=== PATIENT | female | born 1955 | race Caucasian/White ===

== ENCOUNTER 2019-12-18 13:19 | Outpatient (REF) | payer MEDICARE, SELFPAY ==
[2019-12-18 21:18] LABS: HCT 41.9 % (36.0-46.0); HGB 13.9 g/dL (12.0-15.5); Mean Corp. HGB Concentration 33.2 g/dL (32.0-36.0); Mean Corpuscular Hemoglobin 31.3 pg (27.0-33.0); Mean Corpuscular Volume 94.4 fL (80-95); Mean Platelet Volume 10.5 fL (8.0-11.0); Platelet Count 293 x1000/uL (130-400); RBC 4.44 m/cumm (4.00-5.20); RBC Distribution Width 13.3 % (11.7-14.6); White Blood Cell Count 7.79 k/cumm (4.4-10.8)
[2019-12-18 21:51] LABS: ALT 27 U/L (14-59); AST 15 U/L (15-37); Alkaline Phosphatase 101 U/L (46-116); Anion Gap 5.3 mmol/L (3-11); BUN 22 mg/dL (7-18); Bilirubin, Total 0.4 mg/dL (0.2-1.0); CO2 34.7 mmol/L (21.0-32.0); Calcium 9.4 mg/dL (8.5-10.1); Calculated LDL 100 mg/dL (<100); Chloride 102 mmol/L (98-107); Cholesterol 207 mg/dL (<200); Estimated GFR 55.64 (mL/min/1.73m2); Glucose 88 mg/dL (74-106); HDL Cholesterol 50 mg/dL (40-60); Magnesium 1.8 mg/dL (1.8-2.4); Potassium 4.4 mmol/L (3.5-5.1); Sodium 142 mmol/L (136-145); Total Protein 7.5 g/dL (6.4-8.2); Triglyceride 289 mg/dL (<150); Vitamin B12 519 pg/mL (193-986)
== END 2019-12-18 13:39 ==
LOC: NCHCN 13:19
PROVIDERS: Visit Provider Nurse Practitioner Family
DX: E78.5 Hyperlipidemia, unspecified (principal); E11.9 Type 2 diabetes mellitus without complications; Z51.81 Encounter for therapeutic drug level monitoring; I10 Essential (primary) hypertension
CPT/HCPCS: 80053; 80061; 85027; 82607; 83735

== ENCOUNTER 2020-03-26 08:18 | Outpatient (REF) | payer MEDICARE, SELFPAY ==
[2020-03-26 21:32] LABS: Hemoglobin A1C 5.7 % (3.8-5.6)
[2020-03-26 21:42] LABS: ALT 25 U/L (14-59); AST 14 U/L (15-37); Albumin 4.1 g/dL (3.4-5.0); Alkaline Phosphatase 90 U/L (46-116); Anion Gap 10.1 mmol/L (3-11); BUN 20 mg/dL (7-18); Bilirubin, Total 0.6 mg/dL (0.2-1.0); CO2 27.9 mmol/L (21.0-32.0); CREATININE 0.93 mg/dL (0.55-1.02); Calcium 9.3 mg/dL (8.5-10.1); Calculated LDL 101 mg/dL (<100); Chloride 104 mmol/L (98-107); Cholesterol 185 mg/dL (<200); Glucose 104 mg/dL (74-106); HDL Cholesterol 58 mg/dL (40-60); Potassium 4.2 mmol/L (3.5-5.1); Sodium 142 mmol/L (136-145); Total Protein 7.2 g/dL (6.4-8.2); Triglyceride 134 mg/dL (<150)
== END 2020-03-26 08:38 ==
LOC: NCHCN 08:18
PROVIDERS: Visit Provider Nurse Practitioner Family
DX: E11.9 Type 2 diabetes mellitus without complications (principal); E78.5 Hyperlipidemia, unspecified; I10 Essential (primary) hypertension
CPT/HCPCS: 80053; 80061; 83036

== ENCOUNTER 2020-04-02 12:29 | Outpatient (REF) | payer MEDICARE, MEDICAID, SELFPAY ==
[2020-04-02 22:56] LABS: COMMENT (LAB VIEW ONLY) 93.25 mg/dL; Microalb ug/mg Crea 36.8 ug/mg Cr
== END 2020-04-02 12:49 ==
LOC: NCHCN 12:29
PROVIDERS: PCP Nurse Practitioner Family; Visit Provider Nurse Practitioner Family
DX: E11.9 Type 2 diabetes mellitus without complications (principal)
CPT/HCPCS: 82043; 82570

== ENCOUNTER 2020-06-03 10:43 | Outpatient (REF) | payer MEDICARE, MEDICAID, SELFPAY ==
[2020-06-03 21:37] LABS: Anion Gap 8.2 mmol/L (3-11); BUN 17 mg/dL (7-18); CO2 30.8 mmol/L (21.0-32.0); CREATININE 0.84 mg/dL (0.55-1.02); Calcium 9.1 mg/dL (8.5-10.1); Chloride 103 mmol/L (98-107); Glucose 107 mg/dL (74-106); Potassium 4.1 mmol/L (3.5-5.1); Sodium 142 mmol/L (136-145); TSH (W/Ref FT4) 1.89 uIU/mL (0.36-3.74)
== END 2020-06-03 11:03 ==
LOC: NCHCN 10:43
PROVIDERS: PCP Nurse Practitioner Family; Visit Provider Nurse Practitioner Family
DX: L65.9 Nonscarring hair loss, unspecified (principal); R80.9 Proteinuria, unspecified
CPT/HCPCS: 80048; 84443

== ENCOUNTER 2020-06-17 14:20 | Outpatient (REF) | payer MEDICARE, MEDICAID, SELFPAY ==
[2020-06-17 21:01] LABS: Anion Gap 7.5 mmol/L (3-11); BUN 12 mg/dL (7-18); CO2 31.5 mmol/L (21.0-32.0); CREATININE 0.82 mg/dL (0.55-1.02); Calcium 9.2 mg/dL (8.5-10.1); Chloride 98 mmol/L (98-107); Glucose 98 mg/dL (74-106); Sodium 137 mmol/L (136-145)
== END 2020-06-17 14:40 ==
LOC: NCHCN 14:20
PROVIDERS: PCP Nurse Practitioner Family; Visit Provider Nurse Practitioner Family
DX: E11.9 Type 2 diabetes mellitus without complications (principal)
CPT/HCPCS: 80048

== ENCOUNTER 2021-01-14 14:58 | Outpatient (REF) | payer MEDICARE, MEDICAID, SELFPAY ==
[2021-01-14 13:42] LABS: ALT 22 U/L (14-59); AST 14 U/L (15-37); Albumin 3.3 g/dL (3.4-5.0); Alkaline Phosphatase 98 U/L (46-116); Anion Gap 10.7 mmol/L (3-11); BUN 19 mg/dL (7-18); Bilirubin, Total 0.7 mg/dL (0.2-1.0); CO2 24.3 mmol/L (21.0-32.0); Calcium 8.3 mg/dL (8.5-10.1); Calculated LDL 104 mg/dL (<100); Chloride 99 mmol/L (98-107); Cholesterol 183 mg/dL (<200); Glucose 164 mg/dL (74-106); HDL Cholesterol 63 mg/dL (40-60); Potassium 4.2 mmol/L (3.5-5.1); Sodium 134 mmol/L (136-145); Total Protein 6.7 g/dL (6.4-8.2); Triglyceride 84 mg/dL (<150)
[2021-01-15 10:02] LABS: HIV-1/2 Ag & Ab Screen Negative (Negative)
[2021-01-15 10:38] LABS: Hepatitis C Ab w Rflx HCV PCR Negative (Negative)
== END 2021-01-14 14:59 | disposition home or self-care (01) ==
LOC: NCHCN 14:58
PROVIDERS: PCP Nurse Practitioner Family; Visit Provider Nurse Practitioner Family
DX: E78.5 Hyperlipidemia, unspecified (principal); I10 Essential (primary) hypertension; E11.9 Type 2 diabetes mellitus without complications; Z11.4 Encounter for screening for human immunodeficiency virus [HIV]; Z11.59 Encounter for screening for other viral diseases; Z00.00 Encounter for general adult medical examination without abnormal findings
CPT/HCPCS: 80053; 80061; 86803; 87389

== ENCOUNTER 2021-07-15 22:35 | Outpatient (REF) | payer MEDICARE, MEDICAID, SELFPAY ==
[2021-07-15 22:11] LABS: BUN 14 mg/dL (7-18); CREATININE 0.9 mg/dL (0.55-1.02); Calcium 9.4 mg/dL (8.5-10.1); Chloride 105 mmol/L (98-107); Glucose 94 mg/dL (74-106); Potassium 4.4 mmol/L (3.5-5.1); Sodium 142 mmol/L (136-145)
== END 2021-07-15 22:36 | disposition home or self-care (01) ==
LOC: NCHCN 22:35
PROVIDERS: PCP Nurse Practitioner Family; Visit Provider Registered Nurse
DX: I10 Essential (primary) hypertension (principal)
CPT/HCPCS: 80048

== ENCOUNTER 2021-08-19 15:44 | Outpatient (REF) | payer MEDICARE, MEDICAID, SELFPAY | END 2021-08-19 15:45 | disposition home or self-care (01) | LOC: NCHCN 15:44 | PROVIDERS: PCP Nurse Practitioner Family; Visit Provider Nurse Practitioner Psychiatric/Mental Health | DX: F33.9 Major depressive disorder, recurrent, unspecified (principal) | CPT/HCPCS: 82306 ==

== ENCOUNTER 2021-09-09 12:00 | Outpatient (REF) | payer MEDICARE, MEDICAID, SELFPAY ==
[2021-09-09 23:06] LABS: TSH (W/Ref FT4) 4.41 uIU/mL (0.36-3.74)
[2021-09-09 23:23] LABS: FREE T4 0.96 ng/dL (0.76-1.46)
== END 2021-09-09 12:01 | disposition home or self-care (01) ==
LOC: LBN 12:00
PROVIDERS: PCP Nurse Practitioner Family; Visit Provider Registered Nurse
DX: R53.83 Other fatigue (principal)
CPT/HCPCS: 84439; 84443

== ENCOUNTER 2021-09-23 15:03 | Outpatient (REF) | payer MEDICARE, MEDICAID, SELFPAY ==
[2021-09-23 13:54] LABS: BUN 17 mg/dL (7-18); CREATININE 0.9 mg/dL (0.55-1.02)
== END 2021-09-23 15:04 | disposition home or self-care (01) ==
LOC: NCHCN 15:03
PROVIDERS: PCP Nurse Practitioner Family; Visit Provider Registered Nurse
DX: R91.1 Solitary pulmonary nodule (principal)
CPT/HCPCS: 84520; 82565

== ENCOUNTER 2021-10-14 15:27 | Outpatient (REF) | payer MEDICARE, MEDICAID, SELFPAY ==
--- OUTSIDE RECORDS SUMMARY | 2021-10-14 15:31 | XMS_ITS | CCD ---
:1955 Author Care Team Providers Name Role Phone FLORA SPRINGER MD Attending Physician Unavailable Vital Signs Vital Sign Value Unit Date/Time Recent/Initial? BMI (Body Mass Index) 35.95 kg/m^2 05/14/2021 14:25 In itial VS Weight Measured 178 lbs 05/14/2021 14:25 Initial VS Height 59 in 05/14/2021 14:25 Initial VS BSA (Body Surface 1.83 m^2 05/14/2021 14:25 Initia l VS Area) BP Systolic 109 mmHg 05/20/2021 11:39 Initial VS BP Diastolic 65 mmHg 05/20/2021 11:39 Initial VS Respiratory Rate 13 bpm 05/20/2021 11:39 Initial VS Heart Rate 64 bpm 05/20/2021 11:39 Initial VS O2 % BldC Oximetry 98 % 05/20/2021 11:39 Initi al VS Body Temperature 36 degrees 05/20/2021 11:39 Initial VS Allergies Allergy Code Allergy Type Reaction Status DOXYCYCLINE 3640 Drug allergy Active SULFA (sulfonamide) 0 Drug allergy Active ERYTHROMYCIN 4053 Drug allergy Active PENICILLIN 0 Drug allergy Active LACTOSE 0 Food allergy Active BACTRIM 254516 Drug allergy Active Procedures Procedure Code Procedure Type Date Dilation & Curettage, DX &/[place] 30751 CPT Therapeutic (Nonobstetrical) Anesthesia, Vaginal Proc, w/Bx; NOS 32792 CPT 05/20/2021 History of Immunizations Immunization Code Date COVID-19, mRNA, LNP-S, PF, 30 mcg/0.3 mL dose 208 12/04/2020 COVID-19, mRNA, LNP-S, PF, 30 mcg/0.3 mL dose 208 01/01/2021 Problems Problem Code Start Date Resolved Date Status Diabetes 74456902 Active Hypertension 83564423 Active Dementia 19084898 Active Anxiety 21909879 Active Depression 21274667 Active UTI 40928519 Active Restless legs 01645919 Active Results Unknown or Not Available. Active Medications Medications Administered During Visit Medication Dose Units Frequency Route Date/Time of Last Dose LACTATED RINGERS X1 05/20/20 21 1000ML IV 10:45 ACETAMINOPHEN INJ PRN IN PACU X1 SDV: 1000MG/100ML 11:44 Encounters Encounter Diagnosis Diagnosis Code Start Date Abnormal findings on diagnostic imaging of other R9389 05/20/2021 specified body structures Social History Smoking Status Code Start Date End Date Never smoker [id number] Patient Decision Aids Unknown or Not Available. Discharge Instructions You were admitted to [facility] on 05/20/2021 09:46 with a principal diagnosis of Abnormal findings on diagno stic imaging of other specified body structures You had the following procedures done: Dilation & Curettage, DX &/Or Therapeutic (Nonobstetrical) An esthesia, Vaginal Proc, w/Bx; NOS You were discharged from [facility] on 05/20/2021 12:40 Should you have any questions prior to d ischarge, please contact a member of your healthcare team. If you have left the ho spital and have any questions, please contact your primary care physician. Chief Complaint and Reason For Visit Chief Complaint Date of Onset SUCTION EVACUATION Function Status Unknown or Not Available. Plan of Care Unknown or Not Available. Referral/Transition of Care Unknown or Not Available.
--- OUTSIDE RECORDS SUMMARY | 2021-10-14 15:31 | XMS_ITS | CCD ---
:1955 Author Care Team Providers Name Role Phone FLORA SPRINGER MD Attending Physician Unavailable Vital Signs Unknown or Not Available. Allergies Allergy Code Allergy Type Reaction Status DOXYCYCLINE 3640 Drug allergy Active SULFA (sulfonamide) 0 Drug allergy Active ERYTHROMYCIN 4053 Drug allergy Active PENICILLIN 0 Drug allergy Active LACTOSE 0 Food allergy Active BACTRIM 348851 Drug allergy Active Procedures Unknown or Not Available. History of Immunizations Immunization Code Date COVID-19, mRNA, LNP-S, PF, 30 mcg/0.3 mL dose 208 12/04/2020 COVID-19, mRNA, LNP-S, PF, 30 mcg/0.3 mL dose 208 01/01/2021 Problems Problem Code Start Date Resolved Date Status Diabetes 19923019 Active Hypertension 87042425 Active Dementia 56383589 Active Anxiety 16837007 Active Depression 39031545 Active UTI 74849880 Active Restless legs 10921418 Active Results Unknown or Not Available. Active Medications Unknown or Not Available. Medications Administered During Visit Unknown or Not Available. Encounters Encounter Diagnosis Diagnosis Code Start Date Abnormal findings on diagnostic imaging of other R9389 05/20/2021 specified body structures Social History Smoking Status Code Start Date End Date Never smoker [id number] Patient Decision Aids Unknown or Not Available. Discharge Instructions You were admitted to [facility] on 05/20/2021 10:23 with a principal diagnosis of Abnormal findings on diagno stic imaging of other specified body structures You were discharged from [facility] on 05/20/2021 10:23 Should you have any questions prior to d ischarge, please contact a member of your healthcare team. If you have left the ho spital and have any questions, please contact your primary care physician. Chief Complaint and Reason For Visit Unknown or Not Available. Function Status Unknown or Not Available. Plan of Care Unknown or Not Available. Referral/Transition of Care Unknown or Not Available.
--- OUTSIDE RECORDS SUMMARY | 2021-10-14 15:31 | XMS_ITS | CCD ---
:1955 Author Care Team Providers Name Role Phone FLORA SPRINGER MD Attending Physician Unavailable Vital Signs Unknown or Not Available. Allergies Unknown or Not Available. Procedures Unknown or Not Available. History of Immunizations Immunization Code Date COVID-19, mRNA, LNP-S, PF, 30 mcg/0.3 mL dose 12/04/2020 COVID-19, mRNA, LNP-S, PF, 30 mcg/0.3 mL dose 01/01/2021 Problems Problem Code Start Date Resolved Date Status Diabetes 99409261 Active Hypertension 10991390 Active Dementia 67998812 Active Anxiety 65362522 Active Depression 72615057 Active UTI 18717734 Active Restless legs 84566395 Active Results Unknown or Not Available. Active Medications Unknown or Not Available. Medications Administered During Visit Unknown or Not Available. Encounters Encounter Diagnosis Diagnosis Code Start Date Abnormal findings on diagnostic imaging of other R9389 05/05/2021 specified body structures Social History Smoking Status Code Start Date End Date Never smoker [id number] Patient Decision Aids Unknown or Not Available. Discharge Instructions You were admitted to [facility] on 05/05/2021 13:43 with a principal diagnosis of Abnormal findings on diagno stic imaging of other specified body structures You were discharged from [facility] on 05/05/2021 13:43 Should you have any questions prior to [...]
--- OUTSIDE RECORDS SUMMARY | 2021-10-14 15:31 | XMS_ITS | CCD ---
:1955 Author Care Team Providers Name Role Phone PRABHA HUDSON Attending Physician Unavailable Vital Signs Unknown or Not Available. Allergies Allergy Code Allergy Type Reaction Status DOXYCYCLINE 3640 Drug allergy RASH Active SULFA (sulfonamide) 0 Drug allergy RASH Active ERYTHROMYCIN 4053 Drug allergy RASH Active PENICILLIN 0 Drug allergy RASH Active LACTOSE 0 Food allergy Active BACTRIM 757193 Drug allergy Active Procedures Unknown or Not Available. History of Immunizations Immunization Code Date COVID-19, mRNA, LNP-S, PF, 30 mcg/0.3 mL dose 12/04/2020 COVID-19, mRNA, LNP-S, PF, 30 mcg/0.3 mL dose 01/01/2021 Problems Problem Code Start Date Resolved Date Status Diabetes 67283311 Active Hypertension 72318484 Active Dementia 72626609 Active Anxiety 71249764 Active Depression 69708145 Active UTI 33542745 Active Restless legs 76945510 Active Results Unknown or Not Available. Active Medications Unknown or Not Available. Medications Administered During Visit Unknown or Not Available. Encounters Encounter Diagnosis Diagnosis Code Start Date Solitary nodule of lung [id number] 09/24/2021 Social History Smoking Status Code Start Date End Date Never smoker [id number] Patient Decision Aids Unknown or Not Available. Discharge Instructions You were admitted to [facility] on 09/24/2021 14:49 with a principal diagnosis of Solitary pulmonary nodule You were discharged from [facility] on 09/24/2021 14:49 Should you have any questions prior to d ischarge, please contact a member of your healthcare team. If you have left the ho spital and have any questions, please contact your primary care physician. Chief Complaint and Reason For Visit Chief Complaint Date of Onset Solitary pulmonary nodule Function Status Description Code Date Type Status Developmentally disabled [id number] 1955 Functional Act surya Plan of Care Unknown or Not Available. Referral/Transition of Care Unknown or Not Available.
--- OUTSIDE RECORDS SUMMARY | 2021-10-14 15:31 | XMS_ITS | CCD ---
:1955 Author Care Team Providers Name Role Phone JOSE SCHOFIELD Attending Physician Unavailable [facility] Physician 1 Unavailable P. Registered Nurse Unavailable Vital Signs Vital Sign Value Unit Date/Time Recent/Initial? Weight Measured 187.39 lbs 08/04/2021 09:01 Initial VS BP Systolic 163 mmHg 08/04/2021 09:01 Initial VS BP Diastolic 88 mmHg 08/04/2021 09:01 Initial VS Respiratory Rate 12 bpm 08/04/2021 09:01 Initial VS Heart Rate 66 bpm 08/04/2021 09:01 Initial VS O2 % BldC Oximetry 94 % 08/04/2021 09:01 Initi al VS Body Temperature 35.8 degrees 08/04/2021 09:01 Initial VS BP Systolic 155 mmHg 08/04/2021 12:24 Most Recent VS BP Diastolic 83 mmHg 08/04/2021 12:24 Most Recent VS Respiratory Rate 14 bpm 08/04/2021 12:24 Most Re cent VS Heart Rate 66 bpm 08/04/2021 12:24 Most Recent VS O2 % BldC Oximetry 94 % 08/04/2021 12:24 Most Recent VS Allergies Allergy Code Allergy Type Reaction Status DOXYCYCLINE 3640 Drug allergy RASH Active SULFA (sulfonamide) 0 Drug allergy RASH Active ERYTHROMYCIN 4053 Drug allergy RASH Active PENICILLIN 0 Drug allergy RASH Active LACTOSE 0 Food allergy Active BACTRIM 489486 Drug allergy Active Procedures Unknown or Not Available. History of Immunizations Immunization Code Date COVID-19, mRNA, LNP-S, PF, 30 mcg/0.3 mL dose 208 12/04/2020 COVID-19, mRNA, LNP-S, PF, 30 mcg/0.3 mL dose 01/01/2021 Problems Problem Code Start Date Resolved Date Status Diabetes 48480572 Active Hypertension 17012435 Active Dementia 10399815 Active Anxiety 77585008 Active Depression 66819811 Active UTI 18436187 Active Restless legs 38835594 Active Results BASIC METABOLIC PANEL (BMP) - Collect Da te/Time: 08/04/2021 09:00 Test Name Code Test Result Test Units Test Ref Range GLUCOSE 2345-7 166 mg/dL L=70 H=11 6 BUN 3094-0 13 mg/dL L=6 H=25 CREATININE 2160-0 0.91 mg/dL L=0.51 H=0.95 SODIUM SERUM 2951-2 142 mmol/L L=136 H=14 5 POTASSIUM SERUM 2823-3 3.9 mmol/L L=3.4 H =5.2 CHLORIDE SERUM 2075-0 104 mmol/L L=96 H= 110 CARBON DIOXIDE (CO2) 2028-9 28 mmol/L L=22 H=34 ANION GAP 98973-9 9.6 mmol/L CALCIUM SERUM 93759-4 9.0 mg/dL L=8.2 H=10.2 AGE 65 years eGFR (non-Afr.Amer.) 65527-1 62 mL/min eGFR (Afr-Zambian) 39437-5 75 mL/min TROPONIN-I ADM.* - Collect Date/Time: 09:00 Test Name Code Test Result Test Units Test Ref Range TROPONIN-I 63599-8 <0.017 ng/mL L=0.000 H=0. 060 CBC W/ DIFFERENTIAL* - Collect Date/Time : 08/04/2021 09:00 Test Name Code Test Result Test Units Test Ref Range WBC 6690-2 7.89 th/cmm L=5.00 H=10.00 NEUT % 74.4 % L=40.0 H=80.0 LYMPH % 16.9 % L=10.0 H=50.0 MONO % 10631-1 6.0 % L=2.0 H=12.0 EOS % 1.8 % L=0.0 H=8. 0 BASO % 0.6 % L=0.0 H=3. 0 IG % 2514-8 0.3 % L=0.0 H=1. 1 NRBC % 94768-8 0.0 % L=0.0 H=0. 0 NEUT abs count 751-8 5.9 th/cmm L=1.6 H= 8.4 LYMPH abs count 731-0 1.3 th/cmm L=1.5 H =4.0 MONO abs count 742-7 0.5 th/cmm L=0.2 H= 1.0 EOS abs count 711-2 0.1 th/cmm L=0.0 H=0 .5 BASO abs count 704-7 0.1 th/cmm L=0.0 H= 0.2 IG abs count 07257-0 0.0 th/cmm L=0.0 H=0. 1 NRBC abs count 98565-0 0.0 mil/cmm L=0.0 H= 0.0 RBC 789-8 4.06 mil/cmm L=3.90 H=5.40 HEMOGLOBIN 718-7 12.5 gm/dL L=12.0 H=16.0 HEMATOCRIT 4544-3 38 % L=37 H=47 MCV 787-2 93 fL L=82 H=92 MCH 785-6 30.8 pg L=27.0 H=31.0 MCHC 786-4 33.2 % L=32.0 H=36.0 RDW-SD 788-0 43.5 fL L=39.0 H=49.0 PLATELET COUNT 777-3 263 th/cmm L=150 H= 450 Active Medications Unknown or Not Available. Medications Administered During Visit Medication Dose Units Frequency Route Date/Time of Last Dose ASPIRIN TABLET 324 MG X1 CHEW 08/04/2021 10:54 CHEWABLE: 81MG Encounters Encounter Diagnosis Diagnosis Code Start Date Other chest pain R0789 08/04/2021 Social History Smoking Status Code Start Date End Date Never smoker [id number] Patient Decision Aids Unknown or Not Available. Discharge Instructions You were admitted to [facility] on 08/04/2021 08:44 with a principal diagnosis of Other chest pain You had the following tests done: BASIC METABOLIC PANEL (BMP) CBC W/ DIFFERENTIAL* TROPONIN -I ADM.* You were discharged from [facility] on 08/04/2021 12:20 Should you have any questions prior to d ischarge, please contact a member of your healthcare team. If you have left the ho spital and have any questions, please contact your primary care physician. Chief Complaint and Reason For Visit Chief Complaint Date of Onset CHEST PAIN Function Status Description Code Date Type Status Developmentally disabled [id number] 1955 Functional Act surya Plan of Care Unknown or Not Available. Referral/Transition of Care Unknown or Not Available.
--- OUTSIDE RECORDS SUMMARY | 2021-10-14 15:32 | XMS_ITS | CCD ---
:1955 Author Care Team Providers Name Role Phone FLORA SPRINGER MD Attending Physician Unavailable Vital Signs Unknown or Not Available. Allergies Allergy Code Allergy Type Reaction Status DOXYCYCLINE 3640 Drug allergy Active SULFA (sulfonamide) 0 Drug allergy Active ERYTHROMYCIN 4053 Drug allergy Active PENICILLIN 0 Drug allergy Active LACTOSE 0 Food allergy Active BACTRIM 290410 Drug allergy Active Procedures Unknown or Not Available. History of Immunizations Immunization Code Date COVID-19, mRNA, LNP-S, PF, 30 mcg/0.3 mL dose 208 12/04/2020 COVID-19, mRNA, LNP-S, PF, 30 mcg/0.3 mL dose 208 01/01/2021 Problems Problem Code Start Date Resolved Date Status Diabetes 21778656 Active Hypertension 26835212 Active Dementia 33768448 Active Anxiety 04462258 Active Depression 82513922 Active UTI 42379462 Active Restless legs 73051892 Active Results PAP THINPREP HPV REGARDLESS OF DX - Shayne ect Date/Time: 05/20/2021 15:37 Test Name Code Test Result Test Units Test Ref Range Report (See below) N/A CHLAMYDIA/GC THINPREP - Collect Date/Jeison e: 05/20/2021 15:37 Test Name Code Test Result Test Units Test Ref Range Chlamydia Result Negative N/A Negative GC Result Negative N/A Negative Active Medications Unknown or Not Available. Medications Administered During Visit Unknown or Not Available. Encounters Encounter Diagnosis Diagnosis Code Start Date Encounter for screening for human papillomavirus Z1151 06/10/2021 (HPV) Social History Smoking Status Code Start Date End Date Never smoker [id number] Patient Decision Aids Unknown or Not Available. Discharge Instructions You were admitted to [facility] on 06/10/2021 22:07 with a principal diagnosis of Encounter for screening for human papillomavirus (HPV) You had the following tests done: CHLAMYDIA/GC THINPREP PAP THINPREP HPV REGARDLESS OF DX You were discharged from [facility] on 06/10/2021 22:07 Should you have any questions prior to [...]
== END 2021-10-14 15:28 | disposition home or self-care (01) ==
LOC: NCHCN 15:27
PROVIDERS: PCP Nurse Practitioner Family; Visit Provider Registered Nurse
DX: E55.9 Vitamin D deficiency, unspecified (principal)
CPT/HCPCS: 82306

== ENCOUNTER 2022-02-15 15:35 | Outpatient (REF) | payer MEDICARE, MEDICAID, SELFPAY ==
[2022-02-15 22:01] LABS: Vitamin D 25 Total 35.1 ng/mL (30-100)
== END 2022-02-15 15:36 | disposition home or self-care (01) ==
LOC: NCHCN 15:35
PROVIDERS: PCP Nurse Practitioner Family; Visit Provider Nurse Practitioner Psychiatric/Mental Health
DX: E55.9 Vitamin D deficiency, unspecified (principal)
CPT/HCPCS: 82306

== ENCOUNTER 2022-04-14 17:04 | Outpatient (REF) | payer MEDICARE, MEDICAID, SELFPAY ==
[2022-04-14 22:18] LABS: TSH (W/Ref FT4) 2.78 uIU/mL (0.36-3.74)
[2022-04-14 23:24] LABS: COMMENT (LAB VIEW ONLY) < 13.00 mg/dL
== END 2022-04-14 17:05 | disposition home or self-care (01) ==
LOC: NCHCN 17:04
PROVIDERS: PCP Nurse Practitioner Family; Visit Provider Registered Nurse
DX: E11.9 Type 2 diabetes mellitus without complications (principal); Z86.39 Personal history of other endocrine, nutritional and metabolic disease
CPT/HCPCS: 82043; 82570; 84443

== ENCOUNTER 2022-07-14 19:11 | Outpatient (REF) | payer MEDICARE, MEDICAID, SELFPAY ==
[2022-07-14 15:20] LABS: ALT 28 U/L (14-59); AST 16 U/L (15-37); Albumin 3.4 g/dL (3.4-5.0); Alkaline Phosphatase 113 U/L (46-116); Anion Gap 6.3 mmol/L (3-11); BUN 19 mg/dL (7-18); Bilirubin, Total 0.7 mg/dL (0.2-1.0); CO2 29.7 mmol/L (21.0-32.0); CREATININE 0.9 mg/dL (0.55-1.02); Calcium 9.2 mg/dL (8.5-10.1); Chloride 103 mmol/L (98-107); Estimated GFR 69.64 (mL/min/1.73m2); Glucose 90 mg/dL (74-106); Potassium 4.4 mmol/L (3.5-5.1); Sodium 139 mmol/L (136-145); Total Protein 7.3 g/dL (6.4-8.2)
== END 2022-07-14 19:12 | disposition home or self-care (01) ==
LOC: NCHCN 19:11
PROVIDERS: PCP Nurse Practitioner Family; Visit Provider Registered Nurse
DX: I10 Essential (primary) hypertension (principal); E11.9 Type 2 diabetes mellitus without complications
CPT/HCPCS: 80053; 83036

== ENCOUNTER 2023-03-11 21:24 | Outpatient (REF) | payer MEDICARE, MEDICAID, SELFPAY ==
[2023-03-11 22:00] LABS: Hemoglobin A1C 5.5 % (<5.7)
[2023-03-11 22:10] LABS: TSH 2.57 uIU/mL (0.36-3.74)
== END 2023-03-11 21:25 | disposition home or self-care (01) ==
LOC: NCHCN 21:24
PROVIDERS: PCP Nurse Practitioner Family; Visit Provider Registered Nurse
DX: E03.9 Hypothyroidism, unspecified (principal); E55.9 Vitamin D deficiency, unspecified; E11.9 Type 2 diabetes mellitus without complications
CPT/HCPCS: 82306; 83036; 84443

== ENCOUNTER 2023-07-29 16:20 | Outpatient (REF) | payer MEDICARE, MEDICAID, SELFPAY ==
[2023-07-29 15:21] LABS: Hemoglobin A1C 5.5 % (<5.7)
[2023-07-29 15:44] LABS: ALT 34 U/L (14-59); AST 22 U/L (15-37); Albumin 3.4 g/dL (3.4-5.0); Alkaline Phosphatase 113 U/L (46-116); BUN 21 mg/dL (7-18); Bilirubin, Total 0.8 mg/dL (0.2-1.0); Calcium 9.5 mg/dL (8.5-10.1); Chloride 103 mmol/L (98-107); Estimated GFR 60.98 (mL/min/1.73m2); Glucose 115 mg/dL (74-106); Potassium 4.4 mmol/L (3.5-5.1); Sodium 140 mmol/L (136-145); TSH (W/Ref FT4) 2.54 uIU/mL (0.36-3.74); Total Protein 7.2 g/dL (6.4-8.2)
== END 2023-07-29 16:21 | disposition home or self-care (01) ==
LOC: NCHCN 16:20
PROVIDERS: PCP Nurse Practitioner Family; Visit Provider Family Medicine
DX: E11.9 Type 2 diabetes mellitus without complications (principal); I10 Essential (primary) hypertension
CPT/HCPCS: 80053; 83036; 84443

== ENCOUNTER 2024-01-26 15:16 | Outpatient (REF) | payer MEDICARE, MEDICAID, SELFPAY ==
[2024-01-26 21:34] LABS: COMMENT (LAB VIEW ONLY) 86.81 mg/dL; Microalb ug/mg Crea 12.7 ug/mg Cr
[2024-01-26 21:46] LABS: Anion Gap 8.7 mmol/L (3-11); BUN 16 mg/dL (7-18); CO2 28.3 mmol/L (21.0-32.0); CREATININE 0.8 mg/dL (0.55-1.02); Calcium 9.1 mg/dL (8.5-10.1); Chloride 105 mmol/L (98-107); Estimated GFR 79.22 (mL/min/1.73m2); Glucose 121 mg/dL (74-106); Potassium 4.3 mmol/L (3.5-5.1); Sodium 142 mmol/L (136-145); TSH (W/Ref FT4) 2.49 uIU/mL (0.36-3.74)
[2024-01-26 21:57] LABS: Hemoglobin A1C 5.9 % (<5.7)
[2024-01-26 23:45] LABS: Vitamin D 25 Total 43.2 ng/mL (30-100)
== END 2024-01-26 15:17 | disposition home or self-care (01) ==
LOC: NCHCN 15:16
PROVIDERS: PCP Nurse Practitioner Family; Visit Provider Family Medicine
DX: E11.9 Type 2 diabetes mellitus without complications (principal); E03.9 Hypothyroidism, unspecified; E55.9 Vitamin D deficiency, unspecified
CPT/HCPCS: 80048; 82306; 82043; 82570; 83036; 84443

== ENCOUNTER 2024-12-13 08:48 | Outpatient (REF) | payer MEDICARE, MEDICAID, SELFPAY | END 2024-12-13 08:49 | disposition home or self-care (01) | LOC: NCHCN 08:48 | PROVIDERS: PCP Nurse Practitioner Family; Visit Provider Family Medicine | DX: N39.0 Urinary tract infection, site not specified (principal); R82.89 Other abnormal findings on cytological and histological examination of urine | CPT/HCPCS: 87086 ==

== ENCOUNTER 2025-03-01 16:52 | Outpatient (REF) | payer MEDICARE, MEDICAID, SELFPAY | END 2025-03-01 16:53 | disposition home or self-care (01) | LOC: NCHCN 16:52 | PROVIDERS: PCP Nurse Practitioner Family; Visit Provider Family Medicine | DX: R35.0 Frequency of micturition (principal); R82.89 Other abnormal findings on cytological and histological examination of urine | CPT/HCPCS: 87086 ==

== ENCOUNTER 2025-03-25 18:20 | Outpatient (REF) | payer MEDICARE, MEDICAID, SELFPAY ==
[2025-03-25 16:13] LABS: ALT 33 U/L (14-59); AST 19 U/L (15-37); Albumin 3.6 g/dL (3.4-5.0); Alkaline Phosphatase 127 U/L (46-116); BUN 19 mg/dL (7-18); CREATININE 1.1 mg/dL (0.55-1.02); Calcium 8.8 mg/dL (8.5-10.1); Chloride 98 mmol/L (98-107); Estimated GFR 53.72 (mL/min/1.73m2); Folate 14.7 ng/mL (8.6-20.0); Glucose 177 mg/dL (74-106); Potassium 4.4 mmol/L (3.5-5.1); Sodium 133 mmol/L (136-145); TSH 3.53 uIU/mL (0.36-3.74); Total Protein 6.8 g/dL (6.4-8.2); Vitamin B12 502 pg/mL (193-986)
== END 2025-03-25 18:21 | disposition home or self-care (01) ==
LOC: NCHCN 18:20
PROVIDERS: PCP Nurse Practitioner Family; Visit Provider Nurse Practitioner Family
DX: R41.3 Other amnesia (principal)
CPT/HCPCS: 80053; 82607; 82746; 84443

== ENCOUNTER 2025-04-08 14:08 | Outpatient (REF) | payer MEDICARE, MEDICAID, SELFPAY ==
[2025-04-08 21:37] LABS: HCT 36.7 % (36.0-46.0); HGB 12.3 g/dL (11.2-15.7); MCH 30.1 pg (27.0-33.0); MCHC 33.5 % (32.0-36.0); MCV 90 fL (80-95); MPV 10.2 fL (8.0-11.0); Platelet Count 280 10^3/uL (130-400); RBC 4.08 10^6/uL (3.93-5.22); RDW 12.3 % (11.7-14.6); RDW-SD 40.4 fL; WBC 7.60 10^3/uL (4.4-10.8)
== END 2025-04-08 14:09 | disposition home or self-care (01) ==
LOC: NCHCN 14:08
PROVIDERS: PCP Nurse Practitioner Family; Visit Provider Family Medicine
DX: R41.3 Other amnesia (principal)
CPT/HCPCS: 85027

== ENCOUNTER 2025-05-20 18:49 | Outpatient (REF) | payer MEDICARE, MEDICAID, SELFPAY ==
[2025-05-20 22:01] LABS: Hemoglobin A1C 5.7 % (<5.7)
[2025-05-20 22:03] LABS: Anion Gap 7.7 mmol/L (3-11); BUN 16 mg/dL (7-18); CO2 28.3 mmol/L (21.0-32.0); Calcium 9.2 mg/dL (8.5-10.1); Calculated LDL 55 mg/dL (<100); Chloride 103 mmol/L (98-107); Cholesterol 142 mg/dL (<200); Estimated GFR 78.72 (mL/min/1.73m2); Glucose 86 mg/dL (74-106); HDL Cholesterol 74 mg/dL (>or=50); Potassium 4.3 mmol/L (3.5-5.1); Sodium 139 mmol/L (136-145); TSH (W/Ref FT4) 2.55 uIU/mL (0.36-3.74); Triglyceride 66 mg/dL (<150)
[2025-05-20 22:46] LABS: Vitamin B12 379 pg/mL (193-986); Vitamin D 25 Total 52 ng/mL (30-100)
[2025-05-20 22:49] LABS: Folate > 20.0 ng/mL (8.6-20.0)
== END 2025-05-20 18:50 | disposition home or self-care (01) ==
LOC: NCHCN 18:49
PROVIDERS: PCP Nurse Practitioner Family; Visit Provider Family Medicine
DX: E78.5 Hyperlipidemia, unspecified (principal); R73.03 Prediabetes; E55.9 Vitamin D deficiency, unspecified; E03.9 Hypothyroidism, unspecified; N18.30 Chronic kidney disease, stage 3 unspecified; R26.9 Unspecified abnormalities of gait and mobility
CPT/HCPCS: 80048; 80061; 82306; 82607; 82746; 83036; 84443